=== PATIENT | female | born 1960 ===

== ENCOUNTER → 2018-03-11 21:55 | Outpatient (REF) | payer OTHER, SELFPAY ==
[2018-03-13 14:21] LABS: Sex Hormone Binding Globulin 75 nmol/L (17-124)
[2018-03-13 17:02] LABS: Progesterone 1.7 ng/mL
[2018-03-14 18:19] LABS: Estrogen 93.1 pg/mL
[2018-03-15 15:36] LABS: Testosterone Free 3.3 pg/mL (0.1-6.4); Testosterone Total 47 ng/dL (2-45)
== END ==
LOC: LAB 21:55
PROVIDERS: Visit Provider Naturopath
DX: N95.1 Menopausal and female climacteric states (principal); Z13.89 Encounter for screening for other disorder; Z79.890 Hormone replacement therapy
CPT/HCPCS: 82672; 84144; 84270; 84402; 84403

== ENCOUNTER → 2018-08-26 21:25 | Outpatient (ROUT) | payer OTHER, SELFPAY ==
[2018-08-27 04:47] LABS: Progesterone, Total 3.54 ng/mL
[2018-09-01 08:59] LABS: Testosterone, Total 58.5; Testosterone,Free 1.5
[2018-09-01 09:00] LABS: Sex Hormone Binding Globulin 125.2
== END ==
PROVIDERS: Visit Provider Naturopath
DX: N95.1 Menopausal and female climacteric states (principal); Z79.890 Hormone replacement therapy; M85.80 Other specified disorders of bone density and structure, unspecified site
CPT/HCPCS: 36415; 82672; 84144; 84270; 84402; 84403